=== PATIENT | male | born 1955 | race Caucasian/White ===

== ENCOUNTER 2016-12-20 15:56 | Inpatient (IN) ==
[2016-12-20] MEDS ORDERED: NS 1,000 ML IV ONE ×2 (16:45→19:38)
[2016-12-20] MEDS ORDERED: DILAUDID IV ONE (16:47)
--- NOTE | 2016-12-20 16:50 | PROVIDER DOCUMENTATION ---
HPI-Rash/Wound/ReCheck - General Source: patient - History of Present Illness-Dermatology Location: reports: torso (abdomen) Quality: reports: painful Severity: reports: mild Onset/Duration: reports: 2 days ago, 3 days ago Timing: reports: still present Context/Associated Symptoms: reports: denies symptoms Identifiable cause?: No Locality of Occurance: Home Similar Symptoms Previously?: Yes Recently seen or treated by another doctor?: No <Pepper Montano - Last Filed: 12/20/16 17:39> <Elsa Cardoso - Last Filed: 12/20/16 21:16> - General Chief Complaint: Post Op Complaint Stated Complaint: POST OP COMPLAINT Time Seen by Provider: 12/20/16 16:24 Allergies/Adverse Reactions: Allergies Allergy/AdvReac Type Severity Reaction Status Date / Time No Known Allergies Allergy Verified 12/20/16 16:16 Home Medications: Home Medication List Medication Instructions Recorded Confirmed Last Taken Type Folic Acid 1 mg PO DAILY #0 tablet 02/19/16 12/20/16 12/02/16 14:00 Rx 1 MG Pentoxifylline E.r. [Trental] 400 mg PO TID #90 tablet 02/19/16 12/20/16 14:00 Rx 400 MG Furosemide [Lasix] 80 mg PO DAILY #120 tablet 07/05/16 12/20/16 12/02/16 14:00 Rx 80 MG Multivit,Fe,Ca,FA & Min [Thera M 1 each PO DAILY #120 tablet 07/05/16 12/20/16 12/02/16 14:00 Rx Plus] 1 EACH Spironolactone [Aldactone] 200 mg PO DAILY #120 tablet 07/05/16 12/20/16 14:00 Rx 200 MG Thiamine [Vitamin B-1] 100 mg PO DAILY #120 tablet 07/05/16 12/20/16 12/02/16 14 :00 Rx 100 MG Oxycodone I.r. [Oxy Ir] 15 mg PO Q6H PRN PRN #20 tablet 12/09/16 12/20/16 Unknown Rx - History of Present Illness-Dermatology Nature of Presenting Problem: Pt is 61 y/o M presents to the ED with post op complaint. Pt states having hernia surgery on Dec [address] Law. Pt states melva coming apart and surgical site opening. Pt states having cirrhosis of the liver. Pt denies being a present drinker. Pt states two days ago surgical site was draining. Pt states having fluid drained off of his abdomen numerous times. (Pepper Montano) Review of Systems - Adult - REVIEW OF SYSTEMS - ADULT Constitutional: denies: chills, fever Eyes: denies: blurred vision, double vision Ears, Nose, Mouth & Throat: denies: ear pain, nose pain, throat pain Cardiovascular: denies: chest pain, heart murmur, irregular heart rate Respiratory: denies: cough, shortness of breath, wheezing Gastrointestinal: reports: abdominal pain. denies: diarrhea, nausea, vomiting Genitourinary: denies: dysuria, hematuria Musculoskeletal: denies: bone pain, joint pain, neck pain Integumentary: denies: hives, itching Neurological: denies: dizziness/vertigo, headache/migraines Psychiatric: reports: no symptoms reported Endocrine: reports: no symptoms reported Hematologic/Lymphatic: reports: no symptoms reported Allergic/Immunologic: reports: no symptoms reported All Other Systems: Reviewed and Negative <Pepper Montano - Last Filed: 12/20/16 17:39> Past History - Adult - PAST MEDICAL HISTORY-ADULT Review of Records: reports: Nursing Assessment Review, Medications Reviewed, Social history reviewed & non-contributory. Major Childhood Illnesses: reports: denies history Cardiovascular: reports: denies history Respiratory: reports: denies history Gastrointestinal: reports: liver disease (cirrhosis and Gilbert's) Obstetrical/Gynecological: reports: denies history Genitourinary: reports: denies history Musculoskeletal: reports: denies history Neurological: reports: denies history Endocrine/Immune: reports: denies history Other Conditions: reports: denies history - PRIOR SURGERIES/PROCEDURES Surgical/Procedure History: reports: tonsillectomy, hernia repair, orthopedic ( extremity), other (paracentesis) - IMMUNIZATION STATUS Childhood Immunizations: See Nurse Assessment Flu Vaccine: See Nurse Assessment - FAMILY HISTORY Family History: other (garretts disease) - SOCIAL HISTORY Smoking: cigarettes, greater than 1 pack/day Provider spent 3-5 mins advising pt. on dangers of tobacco.: Discussed manners to quit use, and f/u contacts for add'l counseling. Substance Use: none presently/history of abuse (history of abuse ) Alcohol Use Frequency: sober (former use) Living Situation: family <Pepper Montano - Last Filed: 12/20/16 17:39> Physical Exam-General - PHYSICAL EXAM-ADULT Initial Vital Signs Reviewed: Yes - CONSTITUTIONAL General Appearance: alert, mild distress. negative: appears well (ill in appearance) - EYES Eyes: PERRL/EOMI, pink conjunctivae, fundi clear, no AV nicking - HEAD, EARS, NOSE, MOUTH & THROAT HENMT: normocephalic/atraumatic, moist mucous membranes, normal ENT inspection, TMs normal, pharynx normal - NECK Neck: non-tender, full range of motion, supple, normal inspection - RESPIRATORY Respiratory: chest non-tender, lungs clear, normal breath sounds, no pleuratic chest pain, no respiratory distress, no accessory muscle use - CARDIOVASCULAR Cardiovascular: normal peripheral pulses, regular rate, rhythm, no edema, no gallop, no JVD, no murmur - GASTROINTESTINAL (ABDOMEN) Abdominal Exam: normal bowel sounds, distended, tenderness, other (surgical site opened). negative: guarding, rigid, rebound - LYMPHATIC Lymphatic: no adenopathy - MUSCULOSKELETAL Back Exam: normal inspection, no CVA tenderness, no vertebral tenderness Extremity: normal range of motion, non-tender, no pedal edema, no calf tenderness - SKIN Integumentary: normal turgor, warm/dry, jaundice - NEUROLOGIC Neurologic: plastics heat welder II-XII nml as tested, grossly normal, no motor/sensory deficits - PSYCHIATRIC Psych/Mental Status: normal mood/affect, normal thought content, normal thought process, oriented x 3 <Pepper Montano - Last Filed: 12/20/16 17:39> Progress - CONSULTS/PCP/HOSPITALIST Notification #1 *Consult/PCP/Hospitalist*: Dr. Toro Time Discussed: 17:18 Reason/Comments: Dr. Back consulted with Dr. Toro about Pt Consult Disposition: Will see in ED - CHANGE OF SHIFT REPORT (ED Provider) Report Given and Care Transferred to:: Dr. Gallo Time of Transfer: 17:50 Items Pending: Labs <Bailey Montanoi - Last Filed: 12/20/16 17:39> - EKG 1 Time of EKG reading by physician:: 20:17 EKG Read and Signed by:: Mike Gallo EKG Interpretation (*Must complete 3 of following elements*): Normal Rate: 64 Rhythm: NSR Comments: Normal ECG - CONSULTS/PCP/HOSPITALIST Notification #1 *Consult/PCP/Hospitalist*: Time Discussed: 19:26 Reason/Comments: Update on Pt, and where Dr. Gallo was admitting the Pt to. Consult Disposition: Admit (Agreed to Admittance at [facility], [place]) #2 Consult: Time Discussed: 19:29 Reason/Comments: Dicussing POC, and possibly Transferring to [facility] [place] ICU Consult Disposition: other (Transfer Accepted based on if beds are available in ICU) <Elsa Cardoso - Last Filed: 12/20/16 21:16> - PLAN OF CARE/RESULTS Progress/Plan/Lab Results: Orders Category Date Time Status CBC WITH ELECTRONIC DIFF [HEME] Stat Lab 12/20/16 16:43 Ordered CMP [COMPREHENSIVE METABOLIC PANEL] [CHEM] Stat Lab 12/20/16 16:[address] W/POSS RFLX CULT [URINALYSIS] Stat Lab 12/20/16 16:45 Uncollected 0.9% Sodium Chloride Inj [Ns] 1,000 ml Med 12/20/16 16:45 Active IV 999 mls/hr Hydromorphone [Dilaudid] Med 12/20/16 16:47 Discontinued 1 mg IV NOW ONE Vital Signs - 24 hr 12/20/16 16:19 Temperature 97.5 F L Pulse Rate 93 H Respiratory 18 Rate Blood Pressure 79/49 O2 Sat by Pulse 97 Oximetry Laboratory Tests 12/20/16 12/20/16 16:40 16:40 WBC 16.60 H RBC 2.99 L Hgb 9.4 L Hct 27.5 L MCV 92.0 MCH 31.4 H MCHC 34.2 RDW Std Deviation 14.5 Plt Count 280 MPV 10.4 Immature Gran % (Auto) 0.4 Neut % (Auto) 73.2 Lymph % (Auto) 11.6 L [place] % (Auto) 13.0 H Eos % (Auto) 1.4 Baso % (Auto) 0.4 Immature Gran # (Auto) 0.06 H Neut # (Auto) 12.14 H Lymph # (Auto) 1.93 [place] # (Auto) 2.16 H Eos # (Auto) 0.24 Baso # (Auto) 0.07 Estimated GFR/1.73 m2 44 Laboratory Tests 12/20/16 12/20/16 16:40 16:40 WBC 16.60 H RBC 2.99 L Hgb 9.4 L Hct 27.5 L MCV 92.0 MCH 31.4 H MCHC 34.2 RDW Std Deviation 14.5 Plt Count 280 MPV 10.4 Immature Gran % (Auto) 0.4 Neut % (Auto) 73.2 Lymph % (Auto) 11.6 L [place] % (Auto) 13.0 H Eos % (Auto) 1.4 Baso % (Auto) 0.4 Immature Gran # (Auto) 0.06 H Neut # (Auto) 12.14 H Lymph # (Auto) 1.93 [place] # (Auto) 2.16 H Eos # (Auto) 0.24 Baso # (Auto) 0.07 Sodium 122 L Potassium 3.8 Chloride 85 L Carbon Dioxide 30 Anion Gap 8 BUN 54 H Creatinine 1.6 H Estimated GFR/1.73 m2 44 BUN/Creatinine Ratio 34 Glucose 115 H Calculated Osmolality 262 Calcium 7.9 L Total Bilirubin 2.50 H AST 24 ALT 12 Alkaline Phosphatase 152 H Total Protein 6.9 Albumin 2.0 L Globulin 5.0 Albumin/Globulin Ratio 0.0 (Pepper Montano) 19:41 Nursing staff at [facility] stated that they were full and would call back if they were able to move someone out of ICU and create a bed. 21:11 [facility] ICU called back stated bed was available Laboratory Tests 12/20/16 12/20/16 12/20/16 16:40 16:40 16:40 WBC 16.60 H RBC 2.99 L Hgb 9.4 L Hct 27.5 L MCV 92.0 MCH 31.4 H MCHC 34.2 RDW Std Deviation 14.5 Plt Count 280 MPV 10.4 Immature Gran % (Auto) 0.4 Neut % (Auto) 73.2 Lymph % (Auto) 11.6 L [place] % (Auto) 13.0 H Eos % (Auto) 1.4 Baso % (Auto) 0.4 Immature Gran # (Auto) 0.06 H Neut # (Auto) 12.14 H Lymph # (Auto) 1.93 [place] # (Auto) 2.16 H Eos # (Auto) 0.24 Baso # (Auto) 0.07 PT 16.1 H INR 1.26 H APTT (Factor Assay) 39.5 Sodium 122 L Potassium 3.8 Chloride 85 L Carbon Dioxide 30 Anion Gap 8 BUN 54 H Creatinine 1.6 H Estimated GFR/1.73 m2 44 BUN/Creatinine Ratio 34 Glucose 115 H Calculated Osmolality 262 Calcium 7.9 L Total Bilirubin 2.50 H AST 24 ALT 12 Alkaline Phosphatase 152 H Total Protein 6.9 Albumin 2.0 L Globulin 5.0 Albumin/Globulin Ratio 0.0 Plasma Lactate 12/20/16 16:40 WBC RBC Hgb Hct MCV MCH MCHC RDW Std Deviation Plt Count MPV Immature Gran % (Auto) Neut % (Auto) Lymph % (Auto) [place] % (Auto) Eos % (Auto) Baso % (Auto) Immature Gran # (Auto) Neut # (Auto) Lymph # (Auto) [place] # (Auto) Eos # (Auto) Baso # (Auto) PT INR APTT (Factor Assay) Sodium Potassium Chloride Carbon Dioxide Anion Gap BUN Creatinine Estimated GFR/1.73 m2 BUN/Creatinine Ratio Glucose Calculated Osmolality Calcium Total Bilirubin AST ALT Alkaline Phosphatase Total Protein Albumin Globulin Albumin/Globulin Ratio Plasma Lactate 2.2 Orders Category Date Time Status Admit - [facility] Routine AdmDCTranf 12/20/16 21:12 Ordered Call Admitting on Arrival AT ADMISSION Care 12/20/16 21:13 Active Neurological Check PRN Care 12/20/16 21:12 Active Vital Signs Order ARRIVAL TO ROOM Care 12/20/16 21:12 Active Vital Signs Order Q 4-HR ASSESS Care 12/20/16 21:12 Active BLOOD CULTURE [BLDCUL] Stat Lab 12/20/16 17:16 Ordered CBC WITH ELECTRONIC DIFF [HEME] Stat Lab 12/20/16 16:40 Completed CMP [COMPREHENSIVE METABOLIC PANEL] [CHEM] Stat Lab 12/20/16 16:40 Completed LACTATE, PLASMA [CHEM] Stat Lab 12/20/16 16:[address]IME WITH INR PL [COAG] Routine Lab 12/20/16 16:[address] [COAG] Routine Lab 12/20/16 16:[address] W/POSS RFLX CULT [URINALYSIS] Stat Lab 12/20/16 17:06 Ordered WOUND CULTURE INC GRAM STAIN [RM] Routine Lab 12/20/16 17:55 Ordered 0.9% Sodium Chloride Inj [Ns] 1,000 ml Med 12/20/16 21:15 Ordered IV 100 mls/hr 0.9% Sodium Chloride Inj [Ns] 1,000 ml Med 12/20/16 16:45 Discontinued IV 999 mls/hr 0.9% Sodium Chloride Inj [Ns] 1,000 ml Med 12/20/16 19:38 Discontinued IV 999 mls/hr CefTRIAXONE 1 GM/NS [Rocephin 1 gm/Ns] 50 ml Med 12/20/16 17:13 Discontinued IV NOW Folic Acid Med 12/21/16 09:00 Ordered 1 mg PO DAILY Furosemide [Lasix] Med 12/21/16 09:00 Ordered 80 mg PO DAILY Hydromorphone [Dilaudid] Med 12/20/16 16:47 Discontinued 1 mg IV NOW ONE Multivit,Fe,Ca,FA & Min [Thera M Plus] Med 12/21/16 09:00 Ordered 1 each PO DAILY Spironolactone [Aldactone] Med 12/21/16 09:00 Ordered 200 mg PO DAILY Thiamine [Vitamin B-1] Med 12/21/16 09:00 Ordered 100 mg PO DAILY Oxygen Device Routine Oth 12/20/16 21:13 Active Telemetry [OM.EQ] Routine Oth 12/20/16 21:12 Active EKG [EKG] Stat Ther 12/20/16 19:43 Draft Transfer/Admit Order [TRANSFER] Routine Transfer 12/20/16 21:15 Ordered Vital Signs - 24 hr 12/20/16 12/20/16 12/20/16 16:19 18:33 19:37 Temperature 97.5 F L 98.5 F 98.5 F Pulse Rate 93 H 81 79 Respiratory 18 16 20 Rate Blood Pressure 79/49 91/62 100/60 O2 Sat by Pulse 97 95 96 Oximetry 12/20/16 21:04 Temperature 98.9 F Pulse Rate 79 Respiratory 16 Rate Blood Pressure 101/66 O2 Sat by Pulse 100 Oximetry (Elsa Cardoso) Departure <Pepper Montano - Last Filed: 12/20/16 17:39> - Departure Time of Disposition Order: 21:13 Certified Medical Emergency: Emergent <Elsa Cardoso - Last Filed: 12/20/16 21:16> - Departure DIAGNOSIS: Post-operative complication Qualifiers: Surgical complication system/body Area: [id number] Surgical complication type: shock Encounter type: initial encounter Postoperative shock type: other Qualified Code(s): T81.19XA - Other postprocedural shock, initial encounter Disposition: [facility] 02 Condition: Stable Additional Instructions: ED Follow Up Instructions: You have been treated by a care provider in the Emergency Department. These instructions are being provided to you so you can have an understanding of how to care for yourself upon discharge. Upon discharge from the Emergency Department, you are responsible for making arrangements for follow-up care by a physician of your choice. Take all prescribed medications as directed. Return to the Emergency Department immediately for any new or worsening symptoms. You may call the Physician Referral phone number at [phone] to obtain a list of Physicians who are taking new patients. Referrals: None,PCP [Primary Care Provider] - Attestation - Scribe Verification/Attestation Scribe:: Pepper Montano Acting as Scribe for:: Nasima Back Scribe documention review:: This chart was documented by a scribe and accurately reflects the service the provider performed and the decisions made by the provider. - Scribe Verification/Attestation #2 Shift Change Time: 17:50 Scribe Name: Elsa Cardoso Acting as Scribe for:: Mike Gallo <Pepper Montano - Last Filed: 12/20/16 17:39> - Scribe Verification/Attestation Scribe:: Elsa Cardoso Acting as Scribe for:: Mike Gallo Scribe documention review:: This chart was documented by a scribe and accurately reflects the service the provider performed and the decisions made by the provider. - Scribe Verification/Attestation #2 Shift Change Time: 18:00 Scribe Name: Elsa Cardoso Acting as Scribe for:: Mike Gallo <Elsa Cardoso - Last Filed: 12/20/16 21:16> Physician Attestation
[2016-12-20 16:57] LABS: MANUAL DIFF NEEDED? NO
[2016-12-20 16:59] LABS: BASO% 0.4 % (0.0-0.8); EOS# 0.24 X1000 (0.0-0.7); EOS% 1.4 % (0.0-10.0); HEMATOCRIT 27.5 % (42.0-52.0); HEMOGLOBIN 9.4 g/dL (14.0-18.0); IMM GRAN# 0.06 X1000 (0.0-0.04); IMM GRAN% 0.4 % (0.0-0.5); LYMPH# 1.93 X1000 (1.2-3.4); LYMPH% 11.6 % (20.5-51.1); MCH 31.4 PG (27-31); MCHC 34.2 g/dL (33-37); MONO# 2.16 X1000 (0.11-0.59); MPV 10.4 FL (7.4-10.4); NEUT% 73.2 % (42.2-75.2); PLT 280 X1000 (130-400); RBC 2.99 XMIL (4.7-6.1)
[2016-12-20] MEDS ORDERED: ROCEPHIN 1 GM/NS 50 ML IV ONE (17:13)
[2016-12-20 17:25] LABS: CALCIUM 7.9 mg/dL (8.8-10.2); POTASSIUM 3.8 mmol/L (3.5-5.1); TOTAL BILIRUBIN 2.5 mg/dL (0.20-1.00); TOTAL PROTEIN 6.9 g/dL (6.3-8.3)
[2016-12-20 20:06] LABS: INR 1.26 (0.86-1.15); PROTIME 16.1 Seconds (12.1-15.5)
[2016-12-20 20:07] LABS: PTT PL 39.5 Seconds (22.6-43.9)
--- NOTE | 2016-12-20 20:43 | EKG Report ---
Test Performed on : 12/20/2016 8:17:16 PM Test Reason : Hypotension, Possible Sepsis Blood Pressure : / mmHG Vent. Rate : 064 BPM Atrial Rate : 064 BPM P-R Int : 176 ms QRS Dur : 110 ms QT Int : 446 ms P-R-T Axes : 072 075 067 degrees QTc Int : 460 ms Normal sinus rhythm. Normal ECG When compared with ECG of 14-MAY-2016 13:38, Vent. rate has decreased BY 39 BPM Questionable change in QRS duration Unconfirmed Result
[2016-12-20] MEDS ORDERED: NS 1,000 ML IV SCH (21:15)
[2016-12-20 22:49] LABS: URINE SOURCE CLEAN CATCH
[2016-12-20 22:52] LABS: BILIRUBIN URINE 1+ (NEGATIVE); BLOOD URINE 1+ (NEGATIVE); CLARITY CLEAR (CLEAR); COLOR AMBER; GLUCOSE URINE NEGATIVE (NEGATIVE); LEUKOCYTES URINE TRACE (NEGATIVE); NITRITE URINE NEGATIVE (NEGATIVE); PROTEIN URINE TRACE mg/dL (NEGATIVE); UROBILINOGEN URINE 4+(12 mg/dL)
[2016-12-20 23:11] LABS: URINE CULTURE PL NEEDED? YES; URINE EPITHELIAL CELLS <10 /HPF (<10); URINE WBC <10 /HPF (<10)
--- NOTE | 2016-12-21 01:10 | CONSULTATION ---
DATE OF CONSULTATION: 12/20/2016 HPI: Briefly, this is a 61-year-old white male, patient of Dr. Altman, who is approximately 2 weeks status post incarcerated umbilical hernia repair with small bowel resection, and repair with biologic mesh. He has a history of cirrhosis, secondary alcoholism and possible hemochromatosis or Gilbert syndrome dx is unclear. He presents with a separation of superficial wound to the emergency department. He reports normal bowel function. No confusion or encephalopathy symptoms. No vomiting. He is eating well, and doesn't have any real abdominal pain. He is more concerned about his superficial wound, in the emergency department, labs were obtained showed a white count of 16, bilirubin 2.5. Creatinine is elevated at 1.6 I believe, sodium is 122. He was hypotensive upon arrival with systolic in the 70s. He has received normal saline bolus, and there has been some improvement in his blood pressures but systolics are no higher than 90s, and the most part, in the high 80s. He is not tachycardic. He is not febrile here. PAST MEDICAL HISTORY: Cirrhosis, history of umbilical hernia repair, history of alcoholism. PAST SURGICAL HISTORY: He has had an open repair of an incarcerated strangulated umbilical hernia with small bowel resection and biologic mesh repair, on 12/04. SOCIAL HISTORY: History of alcoholism, but quit drinking several months ago. FAMILY HISTORY: Liver disease and cirrhosis. REVIEW OF SYSTEMS: Ten point negative was mentioned in HPI. PHYSICAL EXAM: vital signs: He is afebrile. Blood pressures as mentioned above. He is not tachycardic. Pulse is in the 70s. Oxygen saturations are normal on room air. General: Alert, oriented, does not seem to be any encephalopathy type symptoms. He is mildly icteric. Abdomen: Protuberant with a fluid wave, but no peritonitis, and no pain. His midline incision has 2 areas of superficial dehiscence of the skin. The mesh is visualized underneath this, but the repair seems to be intact. There does appear to be ascites leaking from this wound. Integument: Otherwise warm, dry. There is some jaundice. No lower extremity edema. There is no asterixis or other focal neurologic deficits. ASSESSMENT AND PLAN: This is a 61-year-old male, with what appears to be decompensated end-stage liver disease, now status post umbilical hernia repair with bowel resection. He does have some separation of superficial wound. I think is most likely related to ongoing leakage of reaccumulation of ascites. He is hyponatremic, and appears to be in decompensated liver failure for most at this point, although, he does not have any obvious encephalopathy symptoms. I spoke with Dr. Law. Plan will be to start him on IV antibiotics, admitted to the ICU for hypotension. He will need aggressive management of sodium and fluid status and paracentesis. He will probably need serial paracentesis to facilitate healing of his wound, and local wound care. I have talked over the plan with Dr. Back. I have also spoken with Dr. Law. He is temporarily unavailable, but will see the patient soon, and I have recommended admission to the hospitalist' s service with close surgical followup. MTDD
[2016-12-21 03:24] LABS: URINE CULTURE NEEDED? NO; URINE SOURCE CATH
[2016-12-21 03:26] LABS: BILIRUBIN URINE NEGATIVE (NEGATIVE); BLOOD URINE TRACE (NEGATIVE); COLOR YELLOW; GLUCOSE URINE NEGATIVE (NEGATIVE); LEUKOCYTES URINE NEGATIVE (NEGATIVE); NITRITE URINE NEGATIVE (NEGATIVE); PROTEIN URINE TRACE mg/dL (NEGATIVE); SP GRAVITY URINE 1.017; TURBIDITY URINE HAZY (CLEAR); UROBILINOGEN URINE NORMAL (NORMAL)
[2016-12-21 03:28] LABS: URINE MICRO REVIEW NEEDED? YES
[2016-12-21 03:54] LABS: UR EPITHELIAL CELLS <10 /HPF (<10); URINE BACTERIA NEGATIVE /HPF; URINE CASTS NONE SEEN; URINE RBC <10 /HPF (<10); URINE WBC <10 /HPF (<10)
[2016-12-21] MEDS ORDERED: ZOFRAN IV PRN (04:11)
[2016-12-21] MEDS ORDERED: TYLENOL PO PRN (04:20)
[2016-12-21] MEDS ORDERED: NS 1,000 ML IV SCH (05:00)
[2016-12-21] MEDS: SODIUM CHLORIDE 0.9% INJ SCH (05:08)
[2016-12-21] MEDS: PROTONIX IV SCH (05:08)
[2016-12-21 05:43] LABS: BASO% 0.5 % (0.0-0.8); EOS# 0.28 X1000 (0.0-0.7); EOS% 1.8 % (0.0-10.0); HEMATOCRIT 25.6 % (42.0-52.0); HEMOGLOBIN 8.6 g/dL (14.0-18.0); LYMPH% 8.5 % (20.5-51.1); MANUAL DIFF NEEDED? YES; MCH 32.3 PG (27-31); MCHC 33.6 g/dL (33-37); MCV 96.2 FL (81-99); MONO# 1.72 X1000 (0.11-0.59); MONO% 11.2 % (1.7-9.3); MPV 11.5 FL (7.4-10.4); PLT 185 X1000 (130-400); RBC 2.66 XMIL (4.7-6.1)
[2016-12-21 06:11] LABS: INR 1.23; PROTIME 13.1 Seconds (9.2-11.7)
[2016-12-21 07:31] LABS: AGAP 11; ALBUMIN 1.5 g/dL (3.5-5.0); BUN 50 mg/dL (8-22); CALCIUM 7.3 mg/dL (8.8-10.2); CHLORIDE 91 mmol/L (98-107); COSMO 266; POTASSIUM 3.7 mmol/L (3.5-5.1); SODIUM 126 mmol/L (136-145); TCO2 24 mmol/L (25-35)
--- NOTE | 2016-12-21 07:35 | Diag Imaging Result Document ---
PROCEDURE NAME: CHEST-PORTABLE - 12/21/2016 PORTABLE CHEST X-RAY: COMPARISON: 12/04/2016. FINDINGS: The nasogastric tube has been removed. There has been clearance of the left lung base. There is new infiltrate or atelectasis at the right lung base. Lung volumes are overall very low. There is mild central pulmonary vascular congestion, although the heart size is normal. IMPRESSION: Mixed changes with overall no improvement.
[2016-12-21 08:03] LABS: EOS 4 % (1-10); LYMPHS 4 % (21-51); MONO 12 % (1-9)
[2016-12-21 08:04] LABS: HYPOCHROM 2+
[2016-12-21] MEDS: ALDACTONE PO SCH (08:21)
[2016-12-21] MEDS: THERA M PLUS PO SCH (08:22)
[2016-12-21] MEDS: FOLIC ACID PO SCH (08:22)
[2016-12-21] MEDS: VITAMIN B-1 PO SCH (08:22)
[2016-12-21] MEDS: ZOSYN 3.375 GM/NS 50 ML IV SCH ×3 (08:47→21:22)
--- NOTE | 2016-12-21 08:51 | HISTORY AND PHYSICAL ---
PRIMARY CARE PROVIDER: At this time the patient does not have a primary care physician, though he does see Dr. Maria, for management of his liver disease and was supposed to follow up with Dr. Law for a postoperative checkup. CHIEF COMPLAINT: Postoperative complaint/wound dehiscence. HISTORY OF PRESENT ILLNESS: Mr. Dobbs is a 61-year-old male who presented to the ER with complaints of surgical wound dehiscence and drainage. He also reports increased abdominal distention. The patient also reports that, over the past few days, he has noticed that he has become progressively more fatigued, weak, and has weakness in his bilateral legs. He did report 1 fall a few days ago secondary to weakness in his legs. He denies any injury from this fall. The patient denies any fever, body aches, or chills. He denies any increased abdominal pain, nausea, vomiting, or diarrhea. The patient reports that, approximately 3 to 4 days ago that he did have dehiscence of his abdominal wound. The patient also reports that there has been a sanguineous drainage coming from this wound as well. He denies any dysuria or urinary frequency, but does report that his urine is darker than normal in color. He also reports some dizziness as well. It was reported by nursing staff that Dr. Law did assess the patient in the ER at [facility]. We will place a consult for him to evaluate the patient. The patient does have an elevated white blood cell count of 16.6. This could be secondary to his wound infection. It also was reported that the patient was hypotensive upon arrival to the ED at [facility] with an initial blood pressure of 79/49, though after 2 L of normal saline bolus, the patient's blood pressure has improved to 100/63. At this time, we will admit the patient to [facility] for further treatment of his wound dehiscence. The patient underwent surgery for an open repair of incarcerated umbilical hernia and small bowel resection on 12/04/2016, and was discharged from the hospital on 12/09/2016. REVIEW OF SYSTEMS: A 14-point review of systems was conducted with the patient and all were negative, except for pertinent positives mentioned in the above HPI. PAST MEDICAL HISTORY: 1. Hepatic cirrhosis. 2. Ascites. 3. Alcohol abuse. 4. Anemia of chronic disease. 5. Hemochromatosis. PAST SURGICAL HISTORY: 1. Liver biopsy. 2. The patient reports that he has undergone a paracentesis approximately 4 times. 3. Recent open repair of an incarcerated umbilical hernia and small bowel resection. SOCIAL HISTORY: The patient is a former smoker. He also has a history of alcohol abuse, though reports that he has not had any alcohol in 3 months. He denies any illicit drug use. FAMILY MEDICAL HISTORY: He reports that his father had a history of heart disease. He also reports that his mother had a history of diabetes mellitus and Gilbert syndrome. He also reports that he had a sister with Gilbert syndrome as well. ALLERGIES: The patient reports no known drug allergies. HOME MEDICATIONS: 1. Thiamine 100 mg p.o. daily. 2. Aldactone 200 mg p.o. daily. 3. Trental 400 mg p.o. t.i.d. 4. Oxy IR 15 mg p.o. q.6 h p.r.n.. 5. Thera-M Plus vitamin 1 p.o. daily. 6. Lasix 80 mg p.o. daily. 7. Folic acid 1 mg p.o. daily. DIAGNOSTIC DATA: Laboratory results: White blood cell count 16.6, red blood cell count 2.9, hemoglobin 9.4, hematocrit 27.5, platelet count 280, PT 16.1, INR 1.26, PTT 39.5, sodium 122, potassium 3.8, hyperlipidemia 85, bicarb 30, BUN 54, creatinine 1.6, GFR 44, glucose 115, calcium 7.9, total bilirubin 2.5, AST 24, ALT 12, alkaline phosphatase 152, plasma lactate is 2.2. Urinalysis was obtained via clean catch, was positive for trace protein, 1+ blood, 1+ bilirubin, trace white blood cells, and 3+ bacteria. EKG showed normal sinus rhythm at a rate of 64 with a QTC of 460. Pending diagnostic studies at this time are blood cultures, wound culture, urine culture, EKG, and repeat lactate. PHYSICAL EXAMINATION: VITAL SIGNS: Temperature 98.2, heart rate 82, respirations 19, blood pressure 103/67, oxygen saturation 95% room air. GENERAL: Mr. Dobbs is a pleasant 61-year-old male who is resting in the inpatient bed. He is in no acute distress. He is awake, alert, and able to answer all questions appropriately. HEENT: Head is atraumatic, normocephalic. Pupils are equal, round, and reactive to light or 3 mm bilaterally and brisk. Subconjuctivae are slightly pale. There is slight jaundice noted to sclera. Oral mucosa is moist. Oropharynx is clear. NECK: Supple. Trachea midline. No JVD noted. No carotid bruit noted upon auscultation bilaterally. CARDIOVASCULAR: The patient has normal S1, S2. No murmurs, gallops, or rubs appreciated with a regular rate and rhythm. PULMONARY: The patient has symmetrical chest expansion bilaterally. Lung sounds in bilateral upper padgett are clear, though bilateral lower padgett are slightly diminished. ABDOMEN: Slightly firm, distended. The patient does not report tenderness, except just at the site of his abdominal surgical wound. Bowel sounds are present and all 4 quadrants are normoactive. The patient does have a midline linear surgical wound noted that does have 2 small areas of dehiscence noted. There is yellowish drainage noted as well. GENITOURINARY: The patient has a Bagley catheter in place at this time. The patient does have dark, renato-colored urine noted to the Bagley drainage bag. EXTREMITIES: No cyanosis, clubbing, or edema noted. Pulse, motor and sensory intact in all extremities as well. Pedal pulses are 3+ bilaterally. INTEGUMENTARY: The patient's skin color is slightly jaundiced, and is warm, dry, and intact, except for previous surgical wound described above in abdominal assessment. NEUROLOGIC: The patient is alert and oriented x3. Cranial nerves II through XII are grossly intact. ASSESSMENT AND PLAN: 1. Wound dehiscence, status post open repair of incarcerated umbilical hernia and small bowel resection. We have placed a consult with Dr. Law, who performed the patient's surgery and we will await his evaluation and further recommendations for management of this. At this time, the patient's wound has been dressed. He will remain n.p.o. and we will continue to follow. 2. Possible wound infection. Wound culture, as well as blood cultures have been obtained. We have placed the patient on a Rocephin 1 g IV q.24 h., and we will continue to follow and await culture results. 3. Leukocytosis. This is possibly secondary to his wound infection. The patient did have trace white blood cells and 2+ bacteria noted in his urine. We are awaiting a urine culture. We will continue with treatment as mentioned for #2, and continue to follow and rule out any other sources of infection. 4. Hypotension. This is likely secondary to the patient's infection. He has received a 2 L of normal saline bolus and getting normal saline at 100 mL/hour. His blood pressure has improved, though, if necessary we can start pressors. 5. Acute kidney injury. This is possibly secondary to his hypotension and infection. We will continue with fluid resuscitation. We will avoid nephrotoxic medications and renally dose medications as necessary. 6. Ascites secondary to hepatic cirrhosis. We will place a consult with Dr. Maria, and will await his evaluation and further recommendations. 7. Hypotonic hypervolemic hyponatremia, likely secondary to his liver disease. The patient will be placed in ICU with Telemetry, vital signs per ICU protocol. DVT prophylaxis provided with SCDs at this time, even if the patient will possibly be a surgical candidate. We will do neuro checks q.2 h., do strict intake and output, and we will repeat a CBC, renal profile, PT, and lactate in the morning. Further orders and recommendations pending hospital course, diagnostic studies, and physician evaluation. Dictated by SAMEER Singh for Robinson Curry MD
[2016-12-21] MEDS ORDERED: VITAMIN B-1 PO SCH (09:00)
[2016-12-21] MEDS ORDERED: LASIX PO SCH (09:00)
--- NOTE | 2016-12-21 10:02 | PROGRESS NOTE ---
DATE: 12/21/2016 SUBJECTIVE: Patient is feeling fine. No abdominal pain. No fever. No chills. OBJECTIVE: Vital Signs: Temperature 97.3 degrees, heart rate 75, respiratory rate 11, blood pressure 102/65, O2 saturation 94% on room air. General Examination: This is a chronically ill- looking, frail, 61-year-old male, lying in bed in no acute distress. HEENT: Head is normocephalic, atraumatic. Anicteric sclerae and pale conjunctivae. Mucous membranes moist. Pupils equal, round, reactive to light and accommodation. Mild jaundice noted in the sclerae. Neck: Supple. No JVD noted. No carotid bruits. No lymphadenopathy. No thyromegaly. Cardiovascular exam: S1, S2 heard. No murmurs, gallops, or rubs. Regular rate and rhythm. Respiratory exam: Clear bilaterally to auscultation. No work of breathing or using accessory muscles. Abdomen: Soft. Definitely distended with massive ascites noted in midline covered by dressing. Bowel sound distant, but present. Extremities: No clubbing, cyanosis, or edema. Peripheral pulses present in both legs. Neurological exam: Patient alert and oriented x3. Able to move 4 extremities. Cranial nerves 2-12 grossly normal. LABORATORY DATA: White cell count 15.33, hemoglobin 8.6, hematocrit 25.6, platelets 185. Sodium 136, potassium 3.7, chloride 91, bicarbonate 24, BUN 50, creatinine 1.2, calcium 7.3, albumin 1.5. ASSESSMENT AND PLAN: 1. Wound dehiscence status post open repair of incarcerated umbilical hernia and small bowel resection. General surgery has been consulted. Initially, the patient has been seen by Dr. Toro, but his primary surgeon is Dr. Law. At this time, the wound has been dressed, and they do not any plans for surgery in the near future. We will follow his recommendations. 2. Possible wound infection. White cell count is still high. So, for half of the coverage, we have switched the Rocephin to Zosyn 3.375 g IV every 6 hours. 3. Hypotension. It was deemed to be secondary to the patient's infection. Patient was receiving normal saline at 100 mL/hour. Considering that this patient has liver cirrhosis with severe hypovolemia and, in order to present worsening of ascites, we have put back fluids to 50 mL/hour. Also, furosemide has been reduced to 40 mg oral daily. 4. Acute kidney injury. The renal function after fluid resuscitation has come back to 1.2, which is normal. 5. Ascites secondary to hepatic cirrhosis. Considering the fact that cirrhosis will make the abdominal wall will prevent healing of those wounds, we prefer to proceed with a paracentesis today. We will see how much fluid we can remove. 6. Hypotonic hypovolemic hyponatremia, improving slow. The patient will continue with the same management. The patient's blood pressure is stable, as well as the rest of vitals, so I think this patient can be transferred to regular floor today.
[2016-12-21] MEDS: NS 1,000 ML IV SCH (13:42)
--- NOTE | 2016-12-21 14:28 | PROGRESS NOTE ---
DATE: 12/21/2016 SUBJECTIVE: The patient reports to feeling better after paracentesis today. He is hungry and wants to eat. OBJECTIVE: Temperature 97.5 degrees, pulse 89, respirations 18, blood pressure 111/64.General: Alert and oriented x4. No acute distress. Gastrointestinal: Soft. Less distention. Nontender. Abdominal wound is dressed. LABORATORY: White blood cell count 15,000, hemoglobin 8.6, INR 1.23. Sodium 126, potassium 3.7, chloride 91, CO2 24, BUN 50, creatinine 1.2, albumin 1.5. ASSESSMENT/PLAN: A 61-year-old male with cirrhosis which is somewhat decompensated and superficial dehiscence of his abdominal wound. He does not have a recurrent hernia or evisceration. I examined the wound yesterday. The skin is broken down secondary to constant seepage of ascites. There is some exposed fascia and biologic mesh. I do not see any erythema or purulent drainage to indicate a wound infection. I think his hypotension is relative to intravascular volume depletion so attention to his vascular space with better nutrition, maybe albumin infusions would be helpful in controlling the ascites fluid is important. The wound is going to have a very difficult time healing absent improvement in these areas. For wound care he just needs dressing changes on a regular basis.
[2016-12-21 14:33] LABS: DIFF NEEDED? YES; WBC BF 506 /cumm
--- NOTE | 2016-12-21 14:34 | Diag Imaging Result Document ---
PROCEDURE NAME: US PARACENTESIS - 12/21/2016 ULTRASOUND-GUIDED PARACENTESIS: COMPARISON: 07/01/2016. TECHNIQUE: The risks and benefits of the procedure were discussed with the patient. All questions were answered. Written and verbal informed consent was obtained. Ultrasound scanning demonstrated moderately large ascites. However on today's exam, there are numerous membranes consistent with complex, loculated ascites. The right lower quadrant was prepped and draped in sterile fashion. Anesthesia was achieved with injection of 8 mL of 1% lidocaine. The paracentesis catheter was advanced without difficulty through a couple of the membranes as deeply as possible, until the return of bloody ascites. 4 L was removed with evacuated bottles. The catheter was withdrawn intact. The patient reported no symptoms from the procedure. IMPRESSION: Successful and uncomplicated ultrasound-guided paracentesis. Please note that the ascites is extremely organized which will make extensive drainage considerably more difficult. MTDD
[2016-12-21 14:36] LABS: MONOS 27 %; POLYS 73 %
[2016-12-21] MEDS ORDERED: ROCEPHIN 1 GM/NS 50 ML IV SCH (18:00)
[2016-12-21] MEDS: MORPHINE IV PRN ×2 (18:52→22:26)
[2016-12-21] MEDS ORDERED: ALBUMIN 25% IV ONE (21:15)
[2016-12-21] MEDS: LACTULOSE PO SCH (22:56)
[2016-12-21] MEDS: ICAR-C PO SCH ×2 (22:56→22:57)
[2016-12-22] MEDS: MORPHINE IV PRN ×6 (03:20→22:32)
[2016-12-22] MEDS: ZOSYN 3.375 GM/NS 50 ML IV SCH ×3 (03:20→17:02)
[2016-12-22] MEDS: SODIUM CHLORIDE 0.9% INJ SCH (05:01)
[2016-12-22] MEDS: PROTONIX IV SCH (05:01)
--- NOTE | 2016-12-22 09:07 | PROGRESS NOTE ---
DATE: 12/22/2016 SUBJECTIVE: The patient denies abdominal pain, nausea, or vomiting. OBJECTIVE: Vital Signs: Afebrile. Vital signs are stable. General: He is alert and oriented x4. In no acute distress. Gastrointestinal: Soft. Somewhat protuberant. Nontender. His incision has serous drainage. The fascia and mesh are intact. There is no fascial dehiscence, there is just skin dehiscence. No surrounding erythema. No odor or purulent drainage. There are no labs today. ASSESSMENT AND PLAN: A 61-year-old male with cirrhosis of the liver and ascites. He is status post incarcerated hernia repair with bowel resection. He now has skin dehiscence and continued ascites drainage. This is a difficult situation. He has protein calorie malnutrition. All of these factors contributing to the breakdown of the wound. For wound care, I think he does need sterile gauze, dressing changes on a daily basis, or even more depending on the amount of drainage. Otherwise, he would be helped with increased nutrition. I will order some protein shakes and supplements and control of his ascites fluid medically.
[2016-12-22] MEDS: FOLIC ACID PO SCH (10:24)
[2016-12-22] MEDS: ICAR-C PO SCH ×2 (10:24→22:30)
[2016-12-22] MEDS: THERA M PLUS PO SCH (10:24)
[2016-12-22] MEDS: LASIX PO SCH (10:24)
[2016-12-22] MEDS: VITAMIN B-1 PO SCH (10:24)
[2016-12-22] MEDS: ALDACTONE PO SCH (10:25)
[2016-12-22] MEDS: LACTULOSE PO SCH ×2 (10:32→22:30)
[2016-12-22] MEDS: NS 1,000 ML IV SCH (12:30)
[2016-12-22 12:42] LABS: MANUAL DIFF NEEDED? NO
[2016-12-22 13:04] LABS: INR 1.26; PROTIME 13.4 Seconds (9.2-11.7); PTT 33.2 Seconds (22.0-36.0)
[2016-12-22 13:38] LABS: AGAP 11; ALBUMIN 2.2 g/dL (3.5-5.0); ALKALINE PHOSPHATASE 129 U/L (32-122); BUN 37 mg/dL (8-22); CALCIUM 7.3 mg/dL (8.8-10.2); CHLORIDE 89 mmol/L (98-107); COSMO 262; GOT 18 U/L (10-34); GPT 9 U/L (10-44); POTASSIUM 3.6 mmol/L (3.5-5.1); SODIUM 126 mmol/L (136-145); TCO2 26 mmol/L (25-35); TOTAL BILIRUBIN 1.68 mg/dL (0.20-1.00)
[2016-12-22 13:58] LABS: BASO% 0.5 % (0.0-0.8); EOS# 0.31 X1000 (0.0-0.7); EOS% 2.8 % (0.0-10.0); HEMATOCRIT 24.6 % (42.0-52.0); HEMOGLOBIN 8.3 g/dL (14.0-18.0); IMM GRAN# 0.05 X1000 (0.0-0.04); IMM GRAN% 0.5 % (0.0-0.5); LYMPH# 1.57 X1000 (1.2-3.4); LYMPH% 14.3 % (20.5-51.1); MCH 31.8 PG (27-31); MCHC 33.7 g/dL (33-37); MCV 94.3 FL (81-99); MONO# 1.48 X1000 (0.11-0.59); MONO% 13.4 % (1.7-9.3); MPV 10.4 FL (7.4-10.4); NEUT% 68.5 % (42.2-75.2); PLT 224 X1000 (130-400); RBC 2.61 XMIL (4.7-6.1)
--- NOTE | 2016-12-22 13:58 | PROGRESS NOTE ---
DATE: 12/22/2016 SUBJECTIVE: Patient reports feeling much better after paracentesis with less abdominal distention. No fever or chills. OBJECTIVE: Vital Signs: Temperature 97.5 degrees, heart rate 65, respiratory rate 20, blood pressure 93/62, and O2 saturation 97% on room air. General Examination: This is a chronically ill-looking and frail, 61-year-old male, lying in bed in no acute distress. HEENT: Head is normocephalic, atraumatic. Icteric sclerae. Pale conjunctivae. Mucous membranes moist. Pupils equal, round, reactive to light and accommodation. Neck: Supple. No JVD noted. No carotid bruits. No lymphadenopathy. No thyromegaly. Cardiovascular exam: S1, S2 heard. No murmurs, gallops or rubs. Regular rate and rhythm. Respiratory exam: Clear bilaterally to auscultation. No work of breathing or using accessory muscles. Abdomen: Soft, less distended with less ascites. Also, in the abdomen there is an incision with serous drainage. There is no pie shell dehiscence. There is no surrounding reddening or foul-smelling purulent drainage coming from there. Extremities: No clubbing, cyanosis, or edema. Peripheral pulses are present in both legs. Neurological exam: Patient alert and oriented x3. Moves 4 extremities. LABORATORY DATA: Still pending. ASSESSMENT AND PLAN: 1. Wound dehiscence status post open repair of incarcerated umbilical hernia and small-bowel resection. Dr. Law from general surgery has been following this patient. He thinks that this skin dehiscence will be difficult to heal because of this protein calorie malnutrition. He has liver failure and, of course, he will not be able to make enough albumin. We are going to order some intravenous and also some shakes. We will continue following this patient. 2. Possible wound infection. As per general surgery evaluation, this wound does not look infected. The labs are still pending. By now, we prefer to keep this patient on Zosyn until we see a better white cell count. 3. Hypotension. This is most probably related to hypoalbuminemia. Gastroenterology is following and they have ordered 50 g of albumin. That can help definitely but, in the long-term, I think is not going to help too much because the liver is not working completely good. 4. Acute kidney injury, resolved. 5. Ascites secondary to hepatic alcoholic cirrhosis. We have ordered uric acid paracentesis which basically removed 4 L of ascitic fluid. We will continue with the same management. 6. Hypotonic hypovolemia. Will continue with intravenous fluids.
--- NOTE | 2016-12-22 16:00 | PROGRESS NOTE ---
DATE: 12/22/2016 SUBJECTIVE: The patient is currently resting in bed. He denies any new complaints. The patient was admitted on 12/20/2016 for worsening abdominal distention, wound dehiscence , status post open repair of incarcerated umbilical hernia and small bowel dissection, known history of alcoholic liver disease, cirrhosis, complicated with recurrent refractory ascites, noncompliance. During this hospital stay, he underwent paracentesis and it showed spontaneous bacterial peritonitis and he was put on antibiotics. We also start on IV albumin today. OBJECTIVE: Vital signs: Temperature 97.5 degrees, pulse of 95, respiratory rate 20, blood pressure of 93/62, saturating 97% room air. Height and weight: Body weight is 196 pounds, 1.6 ounces, BMI 26.6 kg. General: Moderately built, moderately nourished, lying in bed, in no acute distress. HEENT: Pale conjunctivae, mild icterus. Pupils equal, react to light. Neck: Supple. Chest: Decreased Breath sounds at the bases. Cardiac: Regular rhythm. No murmur. Abdomen: Distended. Ascites positive. Discomfort in the periumbilical region. Surgical dressing over the midline and periumbilical region. No rebound. Extremities: Bilateral lower extremity mild edema. Neurologic: He is alert and awake and answers simple questions. LABORATORY: Sodium 126, potassium 3.6, chloride of 89, bicarb 20, anion gap 11 , BUN of 37, creatinine 1, glucose of 105, calcium 7.3, total bilirubin is 1.68, AST 18, ALT 9, alkaline phosphatase is 129. Ammonia 54, total protein 6, albumin of 2.2. White count 11.01. Hemoglobin and hematocrit is 8.3, 24.6, platelet count of 224,000. INR 1.26, PT of 13.4, PTT of 33.2. Urinalysis showing trace protein and trace blood and ascitic fluid showed 5 or 6 white cells, polymyxin was 70%. He had paracentesis ultrasound on 12/13/2016, which drained 4 L of ascitic fluid. There was evidence of numerous membranes consistent with complex, loculated ascites. IMPRESSION AND PLAN: 1. Known history of alcoholic liver disease, cirrhosis, hyperammonemia hepatic encephalopathy, thrombocytopenia, coagulopathy, anemia, hypoalbuminemia and spontaneous bacterial peritonitis. We will continue on albumin 50 g every day for 3 days. We will continue to avoid hepatotoxic drugs. We will keep him on low salt diet, less than 2 g/24 hours. We will continue on multivitamin, lactulose 30 mL b.i.d., Iron C b.i.d., Lasix 40 mg once daily, and Aldactone 20 mg once daily. [facility]. Encouraged compliance. 2. Patient will continue on antibiotics for spontaneous bacterial peritonitis and on discharge he will need to be on Levaquin for 2 weeks. 3. Wound dehiscence, status post open repair of incarcerated umbilical hernia and small bowel resection, being managed by a Dr. Law. 4. Nutrition. We will start him on Boost as per the primary care team. 5. The above plan discussed with the patient and all questions answered. MTDDarwin
--- NOTE | 2016-12-22 19:28 | CONSULTATION ---
DATE OF CONSULTATION: 12/21/2016 REASON FOR CONSULTATION: Ascites leaking through the abdominal wound in the umbilicus area. HISTORY OF PRESENT ILLNESS: A 61-year-old male. He came in with surgical wound dehiscence and drainage of ascitic fluid. He is feeling weak and Dr. Toro has already seen and ascites is a problem. I think Dr. Law did see the patient in the ER. He had an incarcerated umbilical hernia with small bowel resection about 2 weeks ago. REVIEW OF SYSTEMS: Fourteen point review of system was negative except in the history of present illness. PAST MEDICAL HISTORY: Cirrhosis, ascites, alcoholism, anemia hemochromatosis. PAST SURGICAL HISTORY: Liver biopsy. Had paracentesis about 4-5 times and recent repair of the umbilical hernia. SOCIAL HISTORY: Smoker, but stopped now. Used to be a heavy alcoholic, but stopped now for the last 3 months. He does not use any drugs. FAMILY HISTORY: No hemochromatosis. Diabetes. Gilbert syndrome. ALLERGIES: None. MEDICATIONS: Thiamine. Aldactone. Trental. OxyIR, Lasix 80, folic acid 1 mg. LABORATORY DATA: White count 16,000. RBC 2.9, hemoglobin 9.4, hematocrit 27.5, platelets 280,000. PT 16.1 with INR 1.26. Sodium 122. Potassium 3.8. Glucose 115. Calcium 7.9. Bilirubin 2.5. LFTs are normal. EKG was normal. PHYSICAL EXAMINATION: General: Reveals a pleasant gentleman. By the time I have seen him, he is quite comfortable in no acute distress. Vital Signs: Temperature of 98 degrees, heart rate 82, respiration 19, blood pressure 103/67, O2 saturation 95% on room air. General: Pleasant gentleman, resting, in no acute distress. HEENT: Conjunctival pallor present. Neck: Supple. Trachea midline. Heart: Normal first and second heart sounds. Lungs: Clear. Abdomen: Distended. He has dressings on the abdominal wall, but he does have clearly significant ascites. Extremities: No cyanosis, clubbing or even edema. Neurological: Intact. No signs of hepatic encephalopathy. IMPRESSION: 1. Wound dehiscence, status post incarcerated umbilical hernia repair with small bowel resection. 2. Questionable wound infection and has been started on antibiotic. 3. Leukocytosis secondary to #2. 4. Increasing ascites related to cirrhosis. PLAN: I think this can be a problem with the increasing ascites and he has electrolyte problem as well. Trying to balance this out with the diuretics would be a problem. I have talked him about arranging for a paracentesis so at least we can get the wound healed quickly, and then in the long- term we will manage his ascites with a combination of Aldactone and Lasix. We will follow him with you.
[2016-12-22] MEDS: ALBUMIN 25% IV SCH (22:30)
[2016-12-22 23:09] LABS: TOTAL PROT BODY FLUID 1.6 g/dL
[2016-12-23] MEDS: ZOSYN 3.375 GM/NS 50 ML IV SCH ×4 (00:27→17:29)
[2016-12-23] MEDS: MORPHINE IV PRN ×7 (01:36→21:45)
[2016-12-23] MEDS: SODIUM CHLORIDE 0.9% INJ SCH (04:36)
[2016-12-23] MEDS: PROTONIX IV SCH (04:36)
[2016-12-23 06:46] LABS: MANUAL DIFF NEEDED? NO
[2016-12-23 07:00] LABS: BASO% 0.5 % (0.0-0.8); EOS# 0.38 X1000 (0.0-0.7); EOS% 3.9 % (0.0-10.0); HEMATOCRIT 25.2 % (42.0-52.0); HEMOGLOBIN 8.4 g/dL (14.0-18.0); LYMPH# 1.28 X1000 (1.2-3.4); MCH 32.4 PG (27-31); MCHC 33.3 g/dL (33-37); MCV 97.3 FL (81-99); MONO% 14.3 % (1.7-9.3); MPV 10.6 FL (7.4-10.4); NEUT% 68.3 % (42.2-75.2); PLT 179 X1000 (130-400); RBC 2.59 XMIL (4.7-6.1)
[2016-12-23 07:23] LABS: AGAP 11; BUN 27 mg/dL (8-22); CALCIUM 7.8 mg/dL (8.8-10.2); CHLORIDE 90 mmol/L (98-107); COSMO 264; POTASSIUM 3.6 mmol/L (3.5-5.1); SODIUM 129 mmol/L (136-145); TCO2 28 mmol/L (25-35)
[2016-12-23] MEDS: LASIX PO SCH ×2 (07:58→08:13)
[2016-12-23] MEDS: LACTULOSE PO SCH ×3 (07:58→21:45)
[2016-12-23] MEDS: ICAR-C PO SCH ×3 (07:58→21:45)
[2016-12-23] MEDS: VITAMIN B-1 PO SCH ×2 (07:58→08:13)
[2016-12-23] MEDS: FOLIC ACID PO SCH ×2 (07:58→08:13)
[2016-12-23] MEDS: THERA M PLUS PO SCH ×2 (07:58→08:13)
[2016-12-23] MEDS: ALDACTONE PO SCH (08:13)
[2016-12-23] MEDS: LEVAQUIN PO SCH (11:06)
[2016-12-23] MEDS: NS 1,000 ML IV SCH (12:08)
--- NOTE | 2016-12-23 13:16 | PROGRESS NOTE ---
DATE: 12/23/2016 SUBJECTIVE: The patient is resting in bed. He feels weak. He wants to go to rehab. He denies any other complaints. OBJECTIVE: Vital Signs: Temperature of 98.3 degrees, pulse rate of 96, respiratory 16, blood pressure 100/63 saturating 97% on room air. General: Thinly built lying in bed in no acute distress. HEENT: No pallor. No icterus. Neck: Supple. Abdomen: Distended secondary to ascites but it is better than before. He had a recent ascitic tap of 4 L. The ascitic fluid studies have shown spontaneous bacterial peritonitis and the culture is growing gram-negative rods. He has a surgical dressing in the periumbilical region in the lower midline. Extremities: No cyanosis or clubbing. Neurologic: He is alert, awake and oriented. LABORATORY: Hemoglobin and hematocrit is 8.4 and 25.2. White count of 9.8, platelet count of 179,000. Sodium 129, potassium 3.6, chloride 90, bicarb 28, anion gap 11, BUN of 27, creatinine 0.9, and glucose of 7.8. IMPRESSION AND PLAN: 1. Alcoholic liver disease complicated with cirrhosis, hepatic encephalopathy, refractory ascites, thrombocytopenia, coagulopathy, anemia, hypoalbuminemia and now SBP after recent abdominal wall hernia or strangulated hernia surgery and small bowel resection per Dr. Law. We will continue on Levaquin and Zosyn. I will continue albumin. For now, he will stay on low sodium diet, less than 2 g in 24 hours. We will keep him on Lasix 40 mg once daily and Aldactone 20 mg once daily. We will keep on Iron C b.i.d. and multivitamin once daily. He will continue on lactulose 30 mL b.i.d. Patient will be referred to [facility] for liver transplant evaluation. We will also involve social work to help him with medical assistance so that he can pursue further treatment and care at [facility]. 2. Wound dehiscence status post repair of incarcerated umbilical hernia. Small resection being followed by Dr. Law. 3. Nutrition. He will continue to take Boost 3 times daily even on discharge. 4. The patient was encouraged to improve his compliance and follow up with us on office visits. The patient also counseled to quit alcohol completely. Currently, he has not drank in the last 2 months.
--- NOTE | 2016-12-23 15:19 | PROGRESS NOTE ---
DATE: 12/23/2016 SUBJECTIVE: The patient feels very weak. OBJECTIVE: Vital Signs: He is afebrile. Vital signs are stable. General: Alert and oriented x3. No acute distress. He does appear frail. Gastrointestinal: Soft, nontender. Minimal drainage from his wound. LABORATORY: White blood cell count 9.8, hemoglobin 8.4. Sodium 129, chloride 90. BUN 27, creatinine 0.9. ASSESSMENT AND PLAN: A 61-year-old male with spontaneous bacterial peritonitis in the setting of alcoholic liver disease and cirrhosis. He is also postop incarcerated umbilical hernia repair with small bowel resection. He has some skin dehiscence. Further care as per the medical team. His wound needs to be changed with sterile gauze daily. He is still very weak and would benefit from some more physical therapy prior to discharge.
[2016-12-23] MEDS: ALBUMIN 25% IV SCH (21:45)
[2016-12-24] MEDS: ZOSYN 3.375 GM/NS 50 ML IV SCH ×5 (00:19→23:30)
[2016-12-24] MEDS: MORPHINE IV PRN ×7 (01:37→23:29)
[2016-12-24] MEDS: SODIUM CHLORIDE 0.9% INJ SCH (04:57)
[2016-12-24] MEDS: PROTONIX IV SCH (04:57)
[2016-12-24 05:42] LABS: MANUAL DIFF NEEDED? NO
[2016-12-24 06:09] LABS: AGAP 10; BUN 17 mg/dL (8-22); CALCIUM 7.8 mg/dL (8.8-10.2); CHLORIDE 90 mmol/L (98-107); COSMO 258; POTASSIUM 3.8 mmol/L (3.5-5.1); SODIUM 128 mmol/L (136-145); TCO2 28 mmol/L (25-35)
[2016-12-24 06:53] LABS: BASO% 0.5 % (0.0-0.8); EOS% 3.2 % (0.0-10.0); HEMATOCRIT 24.1 % (42.0-52.0); IMM GRAN# 0.02 X1000 (0.0-0.04); IMM GRAN% 0.2 % (0.0-0.5); LYMPH# 1.38 X1000 (1.2-3.4); LYMPH% 14.6 % (20.5-51.1); MCH 31.4 PG (27-31); MCHC 33.2 g/dL (33-37); MCV 94.5 FL (81-99); MONO# 1.42 X1000 (0.11-0.59); MPV 10.2 FL (7.4-10.4); NEUT% 66.5 % (42.2-75.2); PLT 158 X1000 (130-400); RBC 2.55 XMIL (4.7-6.1)
--- NOTE | 2016-12-24 08:11 | PROGRESS NOTE ---
DATE: 12/23/2016 SUBJECTIVE: Patient reports feeling fine. Denies any complaint. OBJECTIVE: Vital Signs: Temperature 98.1 degrees, heart rate 100, respiratory rate 16, blood pressure 112/70, O2 saturation 97% on room air. This is a chronically ill-looking and frail, 61- year-old male, lying in bed, in no acute distress. HEENT: Head is normocephalic, atraumatic. Anicteric sclerae and pale conjunctivae. Mucous membranes moist. Neck: Supple. No JVD noted. No carotid bruits. No lymphadenopathy. No thyromegaly. Cardiovascular: S1, S2 heard. No murmurs, gallops, or rubs. Regular rate and rhythm. Respiratory: Clear bilaterally to auscultation. No work of breathing or using accessory muscles. Abdomen: Distended with ascites in midline. The wound is covered by a dressing. Extremities: No clubbing, cyanosis, or edema. Peripheral pulses present in both legs. Neurological: Patient alert oriented x3. Moves 4 extremities. LABORATORY DATA: White cell count is 9.82, hemoglobin 8.4, hematocrit 25.2, platelets, platelet 179,000. Sodium 129, potassium 3.6, chloride 90, bicarbonate 28, BUN 27, creatinine 0.9. ASSESSMENT AND PLAN: 1. Wound dehiscence status post open repair of incarcerated umbilical hernia and small bowel resection. in this patient. think there is no that there are no other options for this patient and definitely this wound will take a while for it to heal because of the low albumin that this patient has. 2. For possible wound infection, the patient will be on Levaquin. We are going to stop Zosyn. 3. Hypotension. More likely related to hypovolemia. 4. Acute kidney injury, resolved. 5. Ascites secondary to hepatic alcoholic cirrhosis, stable. 6. Hypotonic hypovolemia, improving. We will continue checking BMP daily.
[2016-12-24] MEDS: LACTULOSE PO SCH ×2 (09:04→23:30)
[2016-12-24] MEDS: LASIX PO SCH ×2 (09:05→09:16)
[2016-12-24] MEDS: THERA M PLUS PO SCH (09:05)
[2016-12-24] MEDS: VITAMIN B-1 PO SCH (09:05)
[2016-12-24] MEDS: LEVAQUIN PO SCH (09:05)
[2016-12-24] MEDS: FOLIC ACID PO SCH (09:06)
[2016-12-24] MEDS: ALDACTONE PO SCH ×2 (09:06→09:17)
[2016-12-24] MEDS: ICAR-C PO SCH ×3 (09:08→23:31)
--- NOTE | 2016-12-24 11:04 | PROGRESS NOTE ---
DATE: 12/24/2016 SUBJECTIVE: The patient reports feeling weak and had difficulty walking. OBJECTIVE: Vital signs: He is afebrile. His vital signs are stable. General: He is alert and oriented x3. No acute distress. GI: Soft, protuberant, nontender. The wound is covered with a clean dressing. LABORATORY: Laboratory values were reviewed. ASSESSMENT/PLAN: He has a skin dehiscence status post incarcerated umbilical hernia repair. This is in the setting of liver failure and ascites. He is quite deconditioned. He would benefit from a few more days of physical therapy. He is a fall risk at this time.
[2016-12-25] MEDS: ALBUMIN 25% IV SCH (02:28)
[2016-12-25] MEDS: MORPHINE IV PRN ×7 (04:03→23:09)
[2016-12-25 05:47] LABS: MANUAL DIFF NEEDED? NO
[2016-12-25 06:13] LABS: AGAP 10; BUN 13 mg/dL (8-22); CALCIUM 7.8 mg/dL (8.8-10.2); CHLORIDE 90 mmol/L (98-107); COSMO 254; POTASSIUM 4.2 mmol/L (3.5-5.1); SODIUM 126 mmol/L (136-145); TCO2 26 mmol/L (25-35)
[2016-12-25 06:17] LABS: BASO% 0.4 % (0.0-0.8); EOS# 0.19 X1000 (0.0-0.7); EOS% 1.9 % (0.0-10.0); HEMATOCRIT 26.1 % (42.0-52.0); HEMOGLOBIN 8.5 g/dL (14.0-18.0); IMM GRAN# 0.02 X1000 (0.0-0.04); IMM GRAN% 0.2 % (0.0-0.5); LYMPH# 0.92 X1000 (1.2-3.4); LYMPH% 9.1 % (20.5-51.1); MCH 30.8 PG (27-31); MCHC 32.6 g/dL (33-37); MCV 94.6 FL (81-99); MONO# 1.43 X1000 (0.11-0.59); MONO% 14.1 % (1.7-9.3); MPV 10.3 FL (7.4-10.4); NEUT% 74.3 % (42.2-75.2); PLT 146 X1000 (130-400); RBC 2.76 XMIL (4.7-6.1)
--- NOTE | 2016-12-25 06:22 | DISCHARGE SUMMARY ---
ADMISSION DATE: 12/21/2016 DISCHARGE DATE: 12/24/2016 CONSULTATIONS: Cristy Ramirez M.D., Gastroenterology. PERTINENT PROCEDURES: Ultrasound-guided paracentesis where 4 L were removed. DISCHARGE DIAGNOSES: 1. Wound dehiscence status post open repair of incarcerated umbilical hernia and small bowel resection. He is followed by Dr. Law secondary to this bacterial peritonitis in the setting of his alcoholic liver disease and cirrhosis. The patient is going to have a hard time healing. Dr. Maria suggested Levaquin for [address] Law, for wound care his wounds will need to be changed with sterile gauze daily. 2. Ascites secondary to hepatic alcoholic cirrhosis status post ultrasound- guided paracentesis where 4 L were removed. Stable. 3. Hypotonic hypovolemia. The patient did receive albumin treatments while he was here. He is improving. 4. Acute kidney injury, resolved. 5. Alcoholic liver disease complicated with cirrhosis, hepatic encephalopathy, refractory ascites, thrombocytopenia, coagulopathy, anemia, hypoalbuminemia, and now supraventricular tachycardia after recent abdominal wall hernia or strangulated hernia surgery and small bowel resection per Dr. Law. Patient initially on Levaquin and Zosyn, albumin treatments. Will need to follow a low-sodium 2 g diet in 24 hours. Continue on p.o. Lasix, Aldactone, Icar-C, multivitamins and lactulose. Referred to [facility] for liver transplantation evaluation. Also [employer] Supervisor consultation to help with medications. 6. Poor nutrition. Patient will need to continue with Boost 3 times a day even at discharge. 7. Alcohol abuse. The patient has been counseled to quit alcohol completely, however, he has not drank in the last 2 months per his report. HOSPITAL COURSE: Mr. Dobbs is a 61-year-old, male presenting to the ED with complaints of surgical wound dehiscence and drainage. He also reported abdominal distention and becoming progressively more fatigued with weakness in bilateral lower extremities. Also reported one fall a few days ago prior to his admission secondary to weakness in his legs. He denied any injuries from the fall. The patient was found to be hypotensive on arrival to the ED. He was given 2 L of normal saline bolus. This did improve his blood pressure. The patient initially went to the [facility] where I believe he was evaluated by Dr. Law. He was transported to [facility] for further treatment of his wound dehiscence. He was admitted to the ICU with a consult for GI as well as General Surgery. Surgery assessed the patient. He did have some separation of his superficial wound and they felt that most likely this was related to ongoing leakage of re- accumulation of ascites. Again, patient was started on IV antibiotics. He was aggressively fluid rehydrated. He did not have recurrent hernia or evisceration. The skin was broken down secondary to constant seepage of ascites. There is some exposed fascia and biologic mesh. There was no erythema or purulent drainage indicating a wound infection. Hypotension was secondary to his fluid volume depletion. He was started on albumin. The wound is going to have a very difficult time healing and absent improvement in these area. For wound care he just suggested sterile dressing changes on a regular basis daily. Patient did undergo an ultrasound- guided paracentesis where 4 L of fluid was removed. They did try to balance out his problem with his increasing ascites as well as electrolyte problems helping with fluid balance as well as giving him giving diuretics with Aldactone and Lasix. The patient is to stay on a low-sodium diet with less than 2 g in 24 hours. Continue his Lasix, Aldactone, Icar-C, MVI, lactulose. [employer]visor to help assist medically with medications through the [facility] that he has been accepted to. Patient will be referred to [facility] for liver transplant evaluation per the GI team. Physical Therapy was also consulted to help work with the patient to get him stronger to go home. Patient is self-pay. His options were limited. DISCHARGE DIET: Hepatic diet with Boost b.i.d. DISCHARGE MEDICATIONS: 1. Trental 400 mg p.o. t.i.d. 2. Oxy IR 50 mg p.o. q.6 hours p.r.n. 3. Folic acid 1 mg p.o. daily. 4. Icar-C 81 each p.o. b.i.d. 5. Lactulose 30 mL p.o. b.i.d. 6. Lasix 40 mg p.o. daily. 7. Levaquin 500 mg p.o. daily. 8. Vitamin B1, 100 mg p.o. daily. 9. Aldactone 200 mg p.o. daily. 10. Lasix 80 mg p.o. daily. 11. Thera-M Plus 1 each p.o. daily. FOLLOWUP: 1. The patient is being discharged home. 2. He will follow up with Dr. Maria as well as Dr. Law. The patient does not have a primary care physician at this time. 3. The patient can return to the ED for any worsening of symptoms. DISCHARGE TIME: Greater than 40 minutes. Addendum: Talked with physical therapy team patient is weak and they recommend to keep him in the hospital until tuesday. They will assess him over the weekend. It will be difficult to find a rehab place or home health considering his lack of insurance but will notify web content & social media manager to assist us with patient's needs. Dictated by SAMEER Nash for Brian Wolf MD MTDD
[2016-12-25] MEDS: ZOSYN 3.375 GM/NS 50 ML IV SCH ×3 (07:35→18:45)
[2016-12-25] MEDS: SODIUM CHLORIDE 0.9% INJ SCH (07:36)
[2016-12-25] MEDS: PROTONIX IV SCH (07:36)
--- NOTE | 2016-12-25 10:08 | PROGRESS NOTE ---
DATE: 12/25/2016 SUBJECTIVE: Mr. Víctor Dobbs is a 61-year-old white male, who Dr. Law has repaired ventral hernia on before. He used a biologic mesh. Postoperatively his convalescence has been complicated by the superior aspect of his wound opening up with mesh at its base. The wound appears to be clean. There is some granulation on the side of the wound, but very little granulation on top of the mesh so far. I changed the wound today. Were using damp to dry 4 x 4s. His white blood cell count is 10, his hematocrit is 26%. His heart rate is 94, blood pressure 107/60. He has no work of breathing. O2 saturation 93%. His urine output is adequate. His electrolytes are satisfactory, but his sodium is 126, chloride 90. BUN is 13 and creatinine 0.7. PLAN: We will continue daily dressing changes. He is on IV Zosyn.
--- NOTE | 2016-12-25 10:26 | PROGRESS NOTE ---
DATE: 12/24/2016 SUBJECTIVE: The patient is sitting up having lunch. Feels weak. He says that he does not have much drainage. I looked at the dressings; there is some wetting still present. He is waiting to go to rehabilitation. OBJECTIVE: Vital Signs: Temp 98 degrees, pulse 90, respirations 16, blood pressure 100/60, saturation 97%. HEENT: Mild conjunctival pallor. No icterus. Neck: Supple. Trachea in the midline. Heart and lungs: Normal. Abdomen: Distended, but it is better after his paracentesis. In the fluid, he does have gram-negative rods which is being treated. Neurological: No signs of hepatic encephalopathy. LABORATORY DATA: Hemoglobin at 8.4, hematocrit 25.2, platelets 179, sodium 129. IMPRESSION: 1. Alcoholic liver disease with cirrhosis and refractory ascites. 2. Umbilical hernia repair with leakage, which is better after abdominal paracentesis. 3. Continue diuretics. 4. Nutritional support. PLAN: The patient will be followed up carefully as an outpatient. Watch his electrolytes. On his diuretic.
[2016-12-25] MEDS: VITAMIN B-1 PO SCH (10:55)
[2016-12-25] MEDS: FOLIC ACID PO SCH (10:55)
[2016-12-25] MEDS: LASIX PO SCH (10:56)
[2016-12-25] MEDS: ALDACTONE PO SCH (10:56)
[2016-12-25] MEDS: THERA M PLUS PO SCH (10:56)
[2016-12-25] MEDS: LEVAQUIN PO SCH (10:56)
[2016-12-25] MEDS: LACTULOSE PO SCH ×3 (10:57→21:12)
[2016-12-25] MEDS: ICAR-C PO SCH ×2 (10:59→21:09)
--- NOTE | 2016-12-25 13:45 | PROGRESS NOTE ---
DATE: 12/25/2016 SUBJECTIVE: Patient is feeling fine. Denies any complaints. Reports that he was able to work with physical therapy and go to the door. OBJECTIVE: Vital Signs: Temperature 98.6 degrees, heart rate 94, respiratory rate 16, blood pressure 107/60, O2 saturation 93% on room air. General Examination: This is a chronically ill- looking, frail, 61-year-old male, lying in bed in no acute distress. HEENT: Head is normocephalic and atraumatic. Anicteric sclerae and pale conjunctivae. Mucous membranes moist. Neck: Supple. No JVD noted. No carotid bruits. No lymphadenopathy. No thyromegaly. Cardiovascular: S1 and S2 heard. No murmurs, gallops, or rubs. Regular rate and rhythm. Respiratory: Clear bilaterally to auscultation. No work of breathing or using accessory muscles. Abdomen: Distended with ascites, but unchanged on comparing with previous days. Wound in the abdominal midline covered by dressing. Extremities: No clubbing, cyanosis, or edema. Peripheral pulses present in both legs. Neurological: Patient is alert and oriented x3. Moves 4 extremities. LABORATORY DATA: White cell count 10.14, hemoglobin 8.5, hematocrit 26.1, platelets 146,000. Sodium 136, potassium 4.2, chloride 98, bicarbonate 26, BUN 13, creatinine 0.7, glucose 112. ASSESSMENT AND PLAN: 1. Wound dehiscence status post open repair of incarcerated umbilical hernia. The patient is doing fine. Has been followed by Surgery. They are not planning to do anything from their standpoint. At this point, because this wound looks infected, he will be on 2 weeks of levofloxacin. Definitely, this wound will heal slowly because of the severe hypoalbuminemia secondary to liver disease. 2. Hypotension, most likely related to hypovolemia. Patient had received albumin a few days ago and by now the blood pressure is above 100, between 100 and 110 most of the time. We will continue with the same management. 3. Acute kidney injury, resolved. 4. Ascites secondary to hepatic alcoholic cirrhosis, stable. 5. Hypovolemic hyponatremia, improving. Definitely, this is all because of hypoalbuminemia. I think this is because of liver disease, as well. 6. Physical deconditioning. Patient is medically stable for the last 2 days, but requested to stay in the hospital because he was feeling very weak. Physical therapy team confirmed that he is weak, and he is working on physical therapy, so we will see how he does on Tuesday, when we have to decide between sending home and sending with home health with physical therapy.
[2016-12-26] MEDS: ZOSYN 3.375 GM/NS 50 ML IV SCH ×4 (02:33→21:23)
[2016-12-26] MEDS: MORPHINE IV PRN ×7 (02:33→23:37)
[2016-12-26] MEDS: PROTONIX IV SCH (06:02)
[2016-12-26] MEDS: SODIUM CHLORIDE 0.9% INJ SCH (06:02)
[2016-12-26] MEDS: LASIX PO SCH (10:57)
[2016-12-26] MEDS: LEVAQUIN PO SCH (10:57)
[2016-12-26] MEDS: ALDACTONE PO SCH (10:58)
[2016-12-26] MEDS: THERA M PLUS PO SCH (10:58)
[2016-12-26] MEDS: FOLIC ACID PO SCH (10:58)
[2016-12-26] MEDS: VITAMIN B-1 PO SCH (10:58)
[2016-12-26] MEDS: LACTULOSE PO SCH ×2 (10:59→21:24)
[2016-12-26] MEDS: ICAR-C PO SCH ×2 (11:12→21:24)
--- NOTE | 2016-12-26 11:28 | PROGRESS NOTE ---
DATE: 12/26/2016 Mr. Víctor Dobbs is a 61-year-old male who is status post ventral hernia repair using a biologic mesh. The superior aspect of the wound has opened up. Mesh is at the base of the wound but the wound appears to be clean. It is granulating but the granulation tissue slow to attach to the mesh. We are doing dressing changes and he is on antibiotics. We will continue to do the same.
--- NOTE | 2016-12-26 16:22 | PROGRESS NOTE ---
DATE: 12/26/2016 SUBJECTIVE: Patient is feeling fine. According to him, he is working hard with Physical Therapy and he thinks that he will be ready to go home this Tuesday. OBJECTIVE: Vital Signs: Temperature 98.3 degrees, heart rate 94, respiratory rate 18, blood pressure 119/73, O2 saturation 96% on room air. General Examination: This is a chronically ill- looking, frail, 61-year-old male, lying in bed, in no acute distress. HEENT: Head is normocephalic, atraumatic. Icteric sclerae and pale conjunctivae. Mucous membranes moist. Neck: Supple. No JVD noted. No carotid bruits. No lymphadenopathy. No thyromegaly. Cardiovascular: S1, S2 heard. No murmurs, gallops, or rubs. Regular rate and rhythm. Respiratory: Clear bilaterally to auscultation. No work of breathing or using accessory muscles. Abdomen: Soft, nontender to palpation. Bowel sounds present. No organomegaly. In comparing with previous days, there is a wound covered by dressing in the abdominal midline. Extremities: No clubbing, cyanosis, or edema. Peripheral pulses present in both legs. Neurological: Patient is alert and oriented x3. Able to move 4 extremities. LABORATORY DATA: No labs from today. ASSESSMENT AND PLAN: 1. Wound dehiscence status post open repair of incarcerated umbilical hernia. The patient is doing fine. Surgery is following this patient since admission and they are not planning to do any procedure on him. I think it is reasonable and it looks like the wound is healing as per note from General Surgery, but of course it is going to take a while because of severe hypokalemia in this patient secondary to liver disease. At this point, they recommend that he continue with levofloxacin to complete 2 weeks of antibiotics. 2. Hypotension, most likely related to hypovolemia. That condition is stable right now. 3. Acute kidney injury, resolved. 4. Ascites secondary to hepatic alcoholic cirrhosis, stable. 5. Hypovolemic hyponatremia. This definitely this is because of hypoalbuminemia and because of advanced liver cirrhosis. 6. Physical deconditioning. Patient is basically medically stable to be discharged from hospital from last , but he reports that he is feeling very weak and even weaker than before coming to the hospital. So we have consulted Physical Therapy and he asked to stay until next Tuesday to see if he can be discharged home and he may need home health. At this time, he reports that he is feeling much stronger so at this point, we will talk with Physical Therapy tomorrow to make sure that this patient is doing fine from their standpoint, and if he is safe to be sent home tomorrow.
[2016-12-27] MEDS: MORPHINE IV PRN ×3 (02:43→08:59)
[2016-12-27] MEDS: ZOSYN 3.375 GM/NS 50 ML IV SCH ×2 (02:43→08:53)
[2016-12-27] MEDS: PROTONIX IV SCH (05:42)
[2016-12-27 07:37] VITALS: BP 108/63
[2016-12-27] MEDS: FOLIC ACID PO SCH (08:53)
[2016-12-27] MEDS: ICAR-C PO SCH (08:53)
[2016-12-27] MEDS: VITAMIN B-1 PO SCH (08:53)
[2016-12-27] MEDS: THERA M PLUS PO SCH (08:53)
[2016-12-27] MEDS: LASIX PO SCH ×2 (08:53→08:55)
[2016-12-27] MEDS: LEVAQUIN PO SCH (08:53)
[2016-12-27] MEDS: ALDACTONE PO SCH (08:53)
[2016-12-27] MEDS: LACTULOSE PO SCH (08:54)
--- NOTE | 2016-12-27 10:45 | PROGRESS NOTE ---
DATE: 12/27/2016 SUBJECTIVE: The patient says he is feeling better, a little stronger. OBJECTIVE: Vital Signs: He is afebrile. Vital signs are stable. General: Alert and oriented x4. No acute distress. GI: Soft, protuberant, nontender. His open wound near the umbilicus has some granulating edges. There is some mesh exposed in the middle. No infection is seen. ASSESSMENT/PLAN: A 61-year-old male with cirrhosis and alcoholic liver disease, and recent repair of incarcerated umbilical hernia, now with partial wound dehiscence. He was encouraged to continue moist dressing changes daily with sterile water and gauze, and to keep his wound covered at all times. He can follow up with me in 2 weeks in my office.
--- NOTE | 2016-12-27 13:05 | PROGRESS NOTE ---
DATE: 12/27/2016 SUBJECTIVE: Patient is currently resting in bed. He is getting discharged today. He denies any new complaints this morning. OBJECTIVE: Vital signs: Temperature of 98 degrees, pulse rate of 97, respiratory rate 18, blood pressure 108/60, saturating 96% on room air. General: Moderately built, moderately nourished, lying in bed, in no acute distress. HEENT: No pallor. No icterus. Neck: Supple. Abdomen: Distention noted. Surgical dressing in the periumbilical region and infraumbilical region. No guarding or rebound. Extremities: No cyanosis, clubbing. Neurologic: He is alert, awake, oriented. LAB: His hemoglobin and hematocrit are 8.5 and 26.1 from 12/25. His INR was 1.26 from 12/22/2016. His chemistries on 12/25/2016 showed sodium 126, potassium 4.2, chloride 98, bicarb 26, anion gap 10, BUN of 13, creatinine 0.7, glucose of 112, calcium 7.8. His AFP level was 1.4 which is normal. IMPRESSION AND PLAN: 1. Alcoholic liver disease, cirrhosis, hepatic encephalopathy, refractory ascites, thrombocytopenia, coagulopathy, hypoalbuminemia, anemia, and now spontaneous bacterial peritonitis after recent abdominal wall hernia surgery for strangulated hernia and small bowel resection by Dr. Law. 2. We will continue him on Levaquin 500 mg once daily for a total of 2 weeks. 3. Continue on Iron C b.i.d. 4. Continue multivitamin once daily. 5. Continue lactulose 30 mL b.i.d. 6. Continue Lasix 40 mg daily and Aldactone 200 mg once daily and hold for systolic blood pressure less than 100. 7. Continue on Prilosec 20 mg daily. 8. Patient is to continue a low-sodium diet, less than 2 g in 24 hours. 9. Wound dehiscence status post repair of incarcerated umbilical hernia. To follow up with Dr. Law as advised in 2 weeks. 10. Nutrition. Continue on Boost 3 times daily. 11. The patient was also encouraged to improve compliance with his office visits and continue to stay away from hepatotoxic drugs and continue to be abstinent from alcohol. The above plan was discussed with the patient and the primary care team and all questions were answered. [facility]
--- NOTE | 2016-12-28 08:15 | DISCHARGE SUMMARY ---
ADMISSION DATE: 12/20/2016 DISCHARGE DATE: 12/27/2016 ADDENDUM: On 12/24/2016 Dr. Wolf spoke with the patient. He felt he was ready for discharge today but after speaking with the physical therapy team, they felt that the patient was weak and they recommended to keep him in the hospital until Tuesday where they would continue to work with him. It was very difficult to find rehab or home health considering the patient's lack of insurance. Again, the patient has been [facility]. The patient today feels that he is much stronger. The patient has with physical therapy today. Dr. Wolf has assessed him and he feels that he is safe to be sent home today. VITAL SIGNS: At time of discharge, temperature is 98 degrees, heart rate 97, respirations 18, blood pressure 108/63, O2 96% on room air. Patient is being discharged home. Again, he is being referred to [facility] by the GI team for a liver transplant, for evaluation. Again, patient is self-pay and his options were limited. Dictated by SAMEER Nash for Brian Wolf MD
== END 2016-12-27 11:16 | disposition home or self-care (01) | DRG 432 ==
LOC: P.ED 15:56 → ICU 22:55 → 4N 12-21 11:34
PROVIDERS: ATTEND Internal Medicine
PROC: 0W9G3ZZ Drainage of Peritoneal Cavity, Percutaneous Approach (ICD-10-PCS; principal; 2016-12-21)
DX: K70.31 Alcoholic cirrhosis of liver with ascites (principal); K65.2 Spontaneous bacterial peritonitis; K70.40 Alcoholic hepatic failure without coma; N17.9 Acute kidney failure, unspecified; T81.31XA Disruption of external operation (surgical) wound, not elsewhere classified, initial encounter; D69.6 Thrombocytopenia, unspecified; E46 Unspecified protein-calorie malnutrition; I95.9 Hypotension, unspecified; E87.1 Hypo-osmolality and hyponatremia; I47.1 Supraventricular tachycardia; E88.09 Other disorders of plasma-protein metabolism, not elsewhere classified; E86.1 Hypovolemia; D64.9 Anemia, unspecified; E78.5 Hyperlipidemia, unspecified; F10.21 Alcohol dependence, in remission; Z68.26 Body mass index [BMI] 26.0-26.9, adult; Z79.899 Other long term (current) drug therapy; Z87.891 Personal history of nicotine dependence; Z83.3 Family history of diabetes mellitus
CPT/HCPCS: 49083; 71010; 80048; 80053; 80069; 81001; 82105; 82140; 83605; 84157; 85025; 85610; 85730; 87040; 87070; 87077; 87088; 87186; 89051; 93005; 94761; 96361; 96365; 96375; C9113; J0696; J1170; J2270; J2543; J7030; 97116-GP; 97530-GP; P9047; S0164